=== PATIENT | female | born 1940 | race Caucasian/White ===

== ENCOUNTER 2018-10-20 22:48 | Inpatient (IN) | payer MEDICARE, OTHER ==
[~2018-10-20] VITALS: Ht 167.6 cm; Wt 85.1 kg
--- NOTE | ~2018-10-20 | CON ---
[address] [address] CONSULTATION Name: UGO GARZA ADAM Room: [address] IN M.R.#: [id number] Admission: 10/20/18 Attend Phys: Morgan Cardoso MD Discharge: 10/22/18 Date of : 38 Report #: [id number] THIS REPORT FOR: //name// CC: Morgan Haley DATE OF SERVICE: 10/22/2018 REFERRING PHYSICIAN: Morgan Cardoso MD. REASON FOR CONSULTATION: Gross hematuria. HISTORY OF PRESENT ILLNESS: This is a 78-year-old female who denies any prior urologic problems. She reports acute onset of gross hematuria two days ago, accompanied by some left lower quadrant pain. Denies passage of clots. Denies dysuria. Denies flank pain, fever or nausea. She denies slow stream, hesitancy or sensation of incomplete emptying. Denies passage of any stone fragments. Gross hematuria has resolved. She denies any history of renal disease or stones. PAST MEDICAL HISTORY: As above. She is chronically anticoagulated with Xarelto due to history of PE and DVT. She also has a history of hypertension, bronchitis. ALLERGIES: INCLUDE TYLENOL, CELEBREX, DECADRON, LEVSIN, IBUPROFEN, ULTRAM. MEDICATIONS: List is reviewed. PAST SURGICAL HISTORY: Includes hysterectomy, cholecystectomy, appendectomy, IVC filter placement, jaw surgery. FAMILY HISTORY: She does not know of any family history of renal disease. There is hypertension in the family. SOCIAL HISTORY: Denies use of tobacco, alcohol or recreational drugs. REVIEW OF SYSTEMS: As per the history of present illness. No chest pain, shortness of breath or palpitations. No dizziness. No cough. Left lower quadrant pain as above. Also, reports a history of diverticulosis and diverticulitis. PHYSICAL EXAMINATION: VITAL SIGNS: Temperature 37.2, pulse 76, respirations 20, blood pressure 123/46. GENERAL: This is a 78-year-old female in no acute distress. She is awake, [place] [address] CONSULTATION Name: VANESSA GARZATE [facility] Room: [address] IN [facility].#: [id number] Admission: 10/20/18 Attend Phys: Morgan Cardoso MD Discharge: 10/22/18 Date of : 38 Report #: [id number] HEENT: Normocephalic, atraumatic. Extraocular movements are intact. Oropharynx is clear. NECK: Supple. No JVD. LUNGS: Respiratory effort is normal. CARDIAC: Rhythm is regular. Radial pulses are palpable. Extremities are warm. No peripheral edema. ABDOMEN: Soft and nondistended. She has mild left lower quadrant tenderness with no guarding or rebound. Spine and costovertebral angles are nontender. Moves all extremities well. LABORATORY STUDIES: Include sodium 144, potassium 4.3, chloride 113, CO2 22, BUN 14, creatinine 1.0, glucose 97. Hemoglobin 12.4, white count 4.5, platelet count 217,000. Urinalysis revealed greater than 20 red cells, 0-5 white cells and many bacteria. Culture on that is pending. Noncontrast CT of the abdomen and pelvis was performed. See the report. Images were reviewed. Report indicates bilateral parapelvic cysts with no hydronephrosis, stones or apparent urinary lesions. IMPRESSION AND PLAN: 1. Gross hematuria, anticoagulation. Urine culture is pending. I ordered a urine cytology. 2. Discussed potential etiologies and possible further workup with the patient including contrast imaging and/or cystoscopy. We will defer contrast CT at this point, but this would be helpful to evaluate her upper tracts further. Contrast CT report from a few years ago was noted indicating bilateral parapelvic cysts (2014). However, those images are not available. We will follow along regarding her evaluation. This can be completed as an outpatient if she is otherwise stable for discharge. We will recheck creatinine tomorrow if she remains inpatient as it was 1.5 on admission and has improved to 1.0 today. By: [id number] Ward MD /aristeo
[~2018-10-20 22:48] MED LIST: ACETAMINOPHEN325 M1 PO; AMOXICILLIN 50500 MG; ASPIRIN325; ASPIRIN325 PO; CARBIDOPA-LEVO1 EAC2 PO; CELEXA20 MG PO; COUMADIN; COUMADIN 2 MG TA2 M1; COUMADIN 2.5MG2.5 M1 PO; COUMADIN 5 MG TA5 M1 PO; DARVOCET-N 1001 EAC1; DARVOCET-N 1001 EAC1 PO; FENTANYL PA50 MCG/HR TD; FOLIC ACID1 MG PO; HYDROXYZINE HCL25 M1 PO; KEFLEX500 MG PO; LOPRESSOR25 PO; LOVENOX SQ; LUNESTA2 MG PO; OMEPRAZOLE 20 M20 M1 PO; OSELB75 PO; OXYIR5 MG PO; ROBITUSSIN100 MG/5 M PO; SINEMET 25/1001 TA1 PO; TESSALON PERLE100 MG PO; VITAMIN D1000 UNI1 PO; XARELTO20 MG PO; ZITHROMAX500 MG PO; ZPAK PO
[2018-10-20 23:01] VITALS: BP 150/70
[2018-10-20] MEDS ORDERED: NEURONTIN 300300 M1 PO (23:08)
[2018-10-20] MEDS ORDERED: REQUIP 1 MG TABL1 M1 PO (23:08)
[2018-10-20] MEDS ORDERED: OXYCODONE HCL 55 MG PO (23:09)
[2018-10-20] MEDS ORDERED: ZANTAC 150MG T150 MG PO (23:09)
[2018-10-20] MEDS ORDERED: PROZAC20 MG PO (23:09)
[2018-10-20] MEDS ORDERED: FOLTX TABLET1 EAC1 PO (23:10)
[2018-10-20 23:13] LABS: URINE BLOOD 3+ (Negative); URINE COLOR RED; URINE GLUCOSE-RANDOM NEGATIVE (Negative); URINE KETONES NEGATIVE (Negative); URINE LEUKOCYTES-REFLEX NEGATIVE (Negative); URINE NITRITE-REFLEX NEGATIVE (Negative); URINE PROTEIN 1+ (Negative); URINE SPECIFIC GRAVITY 1.025 (1.005-1.030); URINE UROBILINOGEN 0.2 E.U./dl (0.2-1.0)
[2018-10-20 23:21] LABS: ICTOTEST (BILI CONFIRMATORY) Negative (Negative); URINE BILIRUBIN 1+ (Negative); URINE CLARITY CLOUDY
[2018-10-20 23:28] LABS: ABSOLUTE BASOPHILS 0.1 thou/uL (0.0-0.2); ABSOLUTE EOSINOPHILS 0.1 thou/uL (0.0-0.7); ABSOLUTE LYMPHOCYTES 1.6 thou/uL (0.8-5.3); ABSOLUTE MONOCYTES 0.7 thou/uL (0.0-1.2); ABSOLUTE NEUTROPHILS 3.7 thou/uL (1.6-8.1); BASOPHILS 1.2 %; EOSINOPHILS 1.7 %; HEMATOCRIT 38.6 % (37.0-47.0); HEMOGLOBIN 13.2 gm/dL (12.0-15.0); LYMPHOCYTES 26.4 %; MCH 32.2 pg (26.0-34.0); MCHC 34.2 g/dL (28.0-37.0); MONOCYTES 10.9 %; MPV 7.2 fl. (7.2-11.1); NUCLEATED RBCS 0 /100WBC; PLATELET COUNT* 254 thou/uL (150-400); POLYS 59.8 %; RBC 4.11 mil/uL (4.20-5.00); RDW-CV 13.4 % (10.5-14.5); WBC 6.2 thou/uL (4.0-11.0)
[2018-10-20 23:28] LABS: CASTS None Seen /LPF (None Seen); SQUAMOUS >10 Many /LPF (0-3)
[2018-10-20 23:29] LABS: URINE RBC >20 Many /HPF (0-2); URINE WBC-REFLEX 0-5 Rare /HPF (0-5)
[2018-10-20 23:30] LABS: BACTERIA-REFLEX >30 Many /HPF (None Seen); CRYSTALS None Seen /LPF (None Seen)
[2018-10-20 23:40] LABS: APTT 28.7 Seconds (25.0-31.3); PROTIME 10.7 Seconds (9.20-11.50)
[2018-10-20 23:50] LABS: ALBUMIN 3.6 g/dL (3.4-5.0); CALCIUM 8.8 mg/dL (8.5-10.1); CREATININE 1.5 mg/dL (0.6-1.3); POTASSIUM 3.8 mmol/L (3.5-5.1); TOTAL BILIRUBIN 0.2 mg/dL (<0.1-1.0); TOTAL PROTEIN 6.8 g/dL (6.4-8.2)
[2018-10-21 00:14] VITALS: BP 157/71
[2018-10-21 00:30] VITALS: BP 144/56
[2018-10-21 08:50] VITALS: BP 136/44
[2018-10-21 16:00] VITALS: BP 135/59
[2018-10-21 19:47] VITALS: BP 123/46
[2018-10-22 08:30] VITALS: BP 147/55
[2018-10-22 11:59] VITALS: BP 147/55
[2018-10-22 12:45] VITALS: BP 147/55
--- NOTE | 2018-10-23 17:10 | CON ---
[address] [address] CONSULTATION Name: JOSEYANIRAUGO Room: [address] IN M.R.#: [id number] Admission: 10/20/18 Attend Phys: Morgan Cardoso MD Discharge: 10/22/18 Date of : 38 Report #: [id number] THIS REPORT FOR: //name// CC: Morgan Cardoso Justin Adamarisidajohn DATE OF SERVICE: 10/21/2018 REASON FOR CONSULTATION: Gross hematuria. REFERRING PHYSICIAN: Morgan Cardoso MD CONSULTING PHYSICIAN: Charles Mendoza MD HISTORY OF PRESENT ILLNESS: This is a 78-year-old female who presented to the Emergency Room with gross hematuria that started yesterday. She also has had some dysuria and some abdominal pain in the left lower quadrant. She has never had any symptoms before. She denies any prior history such as kidney stones or urologic surgery. She denies any fevers, chills, nausea or vomiting. She does have a past medical history of pulmonary emboli with multiple DVTs. She has been on lifelong Xarelto and aspirin. Hematuria has been with small clots, but she has been voiding to completion and does not feel like she is retaining her urine. Urinalysis in the Emergency Room was negative for nitrites and leukocyte esterase, but greater than 20 red blood cells. PAST MEDICAL HISTORY: Acute bronchitis, history of PE with multiple DVTs, history of hypertension and influenza. ALLERGIES: TYLENOL, CELEBREX, DEXAMETHASONE, HYOSCYAMINE, IBUPROFEN, HYDROCODONE, DEPO-MEDROL AND TRAMADOL. SOCIAL HISTORY: Never smoker. Denies alcohol use. PAST SURGICAL HISTORY: She has had hysterectomy, cholecystectomy, diverticulitis, appendectomy, IVC filter placement and a cyst in general removed. MEDICATIONS: Requip, Neurontin, oxycodone, ranitidine, Prozac, Lunesta, Xarelto, aspirin, and folic acid. REVIEW OF SYSTEMS: See HPI. CONSTITUTIONAL: Denies any fevers or chills. No change in appetite. GASTROINTESTINAL: She has had some abdominal pain, but no nausea, vomiting or diarrhea. Otherwise, a 14-point review of systems was performed and negative. PHYSICAL EXAMINATION: [place] [address] CONSULTATION Name: UGO GARZA ADAM Room: [address]#: [id number] Admission: 10/20/18 Attend Phys: Morgan Cardoso MD Discharge: 10/22/18 Date of : 38 Report #: [id number] VITAL SIGNS: Temperature 36.8, heart rate 70, respiratory rate 16, blood pressure 136/44. GENERAL: She is alert and oriented x 3, no apparent distress. HEENT: Normocephalic, atraumatic. NECK: Supple. LUNGS: Clear. HEART: Regular rate and rhythm. ABDOMEN: Soft, nontender, nondistended. BACK: No CVA tenderness. EXTREMITIES: Good range of motion with no edema, no calf tenderness. LABORATORY DATA: White count 6.2, hemoglobin 13.2, platelets 254. Chemistry: Sodium is 145, potassium 3.8, BUN 20, creatinine 1.5. Urinalysis greater than 20 red blood cells, 0-5 white blood cells, greater than 10 squamous epithelial cells, bacteria greater than 30. ASSESSMENT AND PLAN: 1. Gross hematuria. 2. Differential includes urinary tract infection versus stone versus a malignancy versus other cause. 3. I agree with starting empiric antibiotics. 4. Await urine culture. 5. We will order a noncontrast CT of the abdomen and pelvis. 6. Depending on results, may need further workup with cystoscopy as an outpatient. 7. Renal insufficiency. Creatinine is 1.5, baseline 1.0 in August 2016, possibly due to obstruction. We will await results of CT scan. Thank you for this consult. We will follow with you. <ELECTRONICALLY SIGNED> By: Charles Mendoza MD 10/23/18 1710 1539 [id number] Mendoza MD /nt
--- NOTE | 2018-10-24 15:06 | PATH ---
[address] [address] PATHOLOGY RPT PROCEDURE Name: UGO GARZA ADAM Room: [address] IN .#: [id number] Admission: 10/20/18 Date of : 38 Discharge: 10/22/18 Report #: [id number] Path Case #: [id number] Note [facility] Accession Number: [id number] TESTS RESULT FLAG UNITS REF RANGE LAB Clinician Provided Cytology Information No. of containers..01 Other (Miscellaneous) Source: [A] 01 URINE DIAGNOSIS: [A] 02 URINE SUSPICIOUS FOR HIGH-GRADE UROTHELIAL CARCINOMA. SEE COMMENT. COMMENT: WILMER IN DR. MARIUSZ KNOWLES'S OFFICE NOTIFIED AT APPROXIMATELY 1450 ON 10/24/2018. REVIEWED WITH DR. CORINE CAMP WHO AGREES WITH THE DIAGNOSIS. Signed out by: 02 Dilshad Loredo MD, Pathologist NPI- [id number] Performed by: Zhane Mercado, Floor Tech ([facility]) Gross description: 01 70ML, CLEAR, COLORLESS /LCS FLAG LEGEND: L-Low Normal,H-High Normal,LL-Alert Low,HH-Alert High <-Panic Low,>-Panic High,A-Abnormal,AA-Critical Abnormal Performed at: [address] [place] [address] Carter Infante MD, [address] [place] [id number] Dilshad Loredo MD, Specimen Comment: A courtesy copy of this report has been sent to Specimen Comment: [phone], , . Specimen Comment: Report sent to ,DR PHILLIPS / DR LENTZ Performed at: [address], [place], [place] [id number] MD Carter Infante MD Phone: [phone]
== END 2018-10-22 12:40 | disposition home or self-care (01) | DRG 696 ==
LOC: M.ERS 22:48 → M.TBA-ER 23:39 → M.3W 23:39
PROVIDERS: Personal Emergency Response Attendant
DX: R31.0 Gross hematuria (principal); E44.1 Mild protein-calorie malnutrition; N17.0 Acute kidney failure with tubular necrosis; G25.81 Restless legs syndrome; T45.515A Adverse effect of anticoagulants, initial encounter; I10 Essential (primary) hypertension; Z68.30 Body mass index [BMI] 30.0-30.9, adult; Z90.49 Acquired absence of other specified parts of digestive tract; Z90.710 Acquired absence of both cervix and uterus; Z86.711 Personal history of pulmonary embolism; Z86.718 Personal history of other venous thrombosis and embolism; Z79.01 Long term (current) use of anticoagulants; Z79.82 Long term (current) use of aspirin; Z79.899 Other long term (current) drug therapy; Z88.8 Allergy status to other drugs, medicaments and biological substances; Z82.49 Family history of ischemic heart disease and other diseases of the circulatory system; Y92.89 Other specified places as the place of occurrence of the external cause

== ENCOUNTER → 2018-11-02 | Outpatient (CLI) | payer MEDICARE, OTHER ==
[~2018-11-02] MED LIST changes: +FOLTX TABLET1 EAC1 PO; +NEURONTIN 300300 M1 PO; +OXYCODONE HCL 55 MG PO; +PROZAC20 MG PO; +REQUIP 1 MG TABL1 M1 PO; +ZANTAC 150MG T150 MG PO
[2018-11-02 13:18] LABS: POTASSIUM 4.1 mmol/L (3.5-5.1)
== END ==
LOC: M.LAB 12:33
PROVIDERS: Urology
DX: R31.0 Gross hematuria (principal)

== ENCOUNTER → 2018-11-05 | Outpatient (CLI) | payer MEDICARE, OTHER | LOC: M.CT 09:30 | DX: N20.0 Calculus of kidney (principal); N28.1 Cyst of kidney, acquired; J98.4 Other disorders of lung; K57.30 Diverticulosis of large intestine without perforation or abscess without bleeding; M25.78 Osteophyte, vertebrae; Z90.49 Acquired absence of other specified parts of digestive tract; Z90.710 Acquired absence of both cervix and uterus ==

== ENCOUNTER 2019-01-25 16:10 | Inpatient (IN) | payer MEDICARE, OTHER ==
[~2019-01-25] VITALS: Ht 167.6 cm; Wt 83.5 kg
[2019-01-25 16:15] VITALS: BP 165/67
[2019-01-25 16:37] LABS: ABSOLUTE EOSINOPHILS 0.1 thou/uL (0.0-0.7); ABSOLUTE LYMPHOCYTES 1.4 thou/uL (0.8-5.3); ABSOLUTE MONOCYTES 0.4 thou/uL (0.0-1.2); ABSOLUTE NEUTROPHILS 2.6 thou/uL (1.6-8.1); BASOPHILS 0.7 %; EOSINOPHILS 2.5 %; HEMATOCRIT 39.3 % (37.0-47.0); HEMOGLOBIN 13.2 gm/dL (12.0-15.0); LYMPHOCYTES 29.7 %; MCH 31.7 pg (26.0-34.0); MCHC 33.6 g/dL (28.0-37.0); MCV 94.3 fL (80.0-100.0); MONOCYTES 9.1 %; MPV 7.1 fl. (7.2-11.1); NUCLEATED RBCS 0 /100WBC; PLATELET COUNT* 239 thou/uL (150-400); RBC 4.17 mil/uL (4.20-5.00); RDW-CV 13.2 % (10.5-14.5); WBC 4.6 thou/uL (4.0-11.0)
[2019-01-25 16:45] LABS: ANION GAP 11 mmol/L (7-16); BUN 17 mg/dL (7-18); CALCIUM 8.7 mg/dL (8.5-10.1); CHLORIDE 106 mmol/L (98-107); CO2 24 mmol/L (21-32); CREATININE 1.1 mg/dL (0.6-1.3); GLUCOSE 126 mg/dL (70-99); POTASSIUM 3.8 mmol/L (3.5-5.1); SODIUM 141 mmol/L (136-145)
[2019-01-25 16:54] LABS: ALBUMIN 3.7 g/dL (3.4-5.0); ALKALINE PHOSPHATASE 150 U/L (46-116); SGOT 15 U/L (15-37); SGPT 24 U/L (30-65); TOTAL BILIRUBIN 0.2 mg/dL (<0.1-1.0); TROPONIN-I LEVEL <0.06 ng/mL (<0.06)
[2019-01-25 17:58] LABS: APTT 29.8 Seconds (25.0-31.3); INR 1.1; PROTIME 11.2 Seconds (9.20-11.50)
[2019-01-25 19:50] VITALS: BP 138/60
[2019-01-25 20:15] VITALS: BP 166/53
--- NOTE | 2019-01-25 20:15 | NUR ---
PT ADMITTED FROM ER, AMBULATED FROM CART TO BED WITH STEADY GAIT. C/O RT CHEST PRESSURE 3/10 AND UPPER BACK PAIN 5/10. TELEMETRY APPLIED SHOWING SR. PT NOTED TO HAVE LT SIDED FACIAL DROOP. STATES RT MOUTH FEELS SWOLLEN AND NUMB. STATES AWARE IN ER AND THOUGHT IT WAS FROM THE NTG SL. BED SIDE SWALLOW COMPLETED, NO DIFFICULTY WITH SWALLOWING, COUGHING OR CHOKING. SEE ADMISSION HX AND ASSESSMENT. FAMILY AT BEDSIDE. WILL CONT TO MONITOR AND ASSIST NEEDED.
[2019-01-25 23:28] LABS: HEMATOCRIT 36.2 % (37.0-47.0); HEMOGLOBIN 12.4 gm/dL (12.0-15.0); MCH 32.2 pg (26.0-34.0); MCHC 34.2 g/dL (28.0-37.0); MCV 94.3 fL (80.0-100.0); MPV 7.5 fl. (7.2-11.1); RBC 3.84 mil/uL (4.20-5.00); WBC 4.3 thou/uL (4.0-11.0)
[2019-01-25 23:37] LABS: CALCIUM 8.6 mg/dL (8.5-10.1); CREATININE 1.1 mg/dL (0.6-1.3); POTASSIUM 3.8 mmol/L (3.5-5.1)
--- NOTE | 2019-01-25 23:41 | NUR ---
DR ANGELO HERE AND MADE AWARE OF FACIAL DROOP. ORDERS RECEIVED. [facility] 1 DUE TO LT FACIAL DROOP. CT OF HEAD COMPLETED. AMBULATED TO AND FROM BR WITH STEADY GAIT. WILL CONT TO MONITOR.
[2019-01-25 23:47] LABS: ALBUMIN 3.1 g/dL (3.4-5.0); TOTAL BILIRUBIN 0.2 mg/dL (<0.1-1.0)
[2019-01-26] VITALS: BP 137/50
[2019-01-26 04:00] VITALS: BP 126/47
[2019-01-26 05:27] LABS: ALKALINE PHOSPHATASE 116 U/L (46-116); ANION GAP 8 mmol/L (7-16); BUN 15 mg/dL (7-18); CALCIUM 8.2 mg/dL (8.5-10.1); CHLORIDE 110 mmol/L (98-107); CHOLESTEROL 178 mg/dL (<200); CO2 25 mmol/L (21-32); CREATININE 1.1 mg/dL (0.6-1.3); GLUCOSE 110 mg/dL (70-99); HDL CHOLESTEROL 59 mg/dL (>40); LDL CHOLESTEROL 105 mg/dL (<100); POTASSIUM 4.1 mmol/L (3.5-5.1); SGOT 12 U/L (15-37); SGPT 19 U/L (30-65); SODIUM 143 mmol/L (136-145); TOTAL BILIRUBIN 0.2 mg/dL (<0.1-1.0); TOTAL PROTEIN 5.9 g/dL (6.4-8.2); TRIGLYCERIDE 73 mg/dL (<150); VLDL 15 mg/dL (<40)
[2019-01-26 05:30] LABS: SERUM ASSESSMENT Clear
--- NOTE | 2019-01-26 06:26 | NUR ---
SLEPT WELL TONIGHT. GAIT STEADY TO AND FROM BR INDEPENDENTLY. NO CHANGE IN ASSESSMENT. NPO ORDERED. TELEMETRY SHOWING SR. HS GOALS OF REST AND SAFETY ACHIEVED. HOURLY ROUNDING OBSERVED.
[2019-01-26 08:00] VITALS: BP 143/57
[2019-01-26 08:28] LABS: URINE BILIRUBIN NEGATIVE (Negative); URINE BLOOD NEGATIVE (Negative); URINE CLARITY CLEAR; URINE COLOR YELLOW; URINE GLUCOSE-RANDOM NEGATIVE (Negative); URINE KETONES NEGATIVE (Negative); URINE LEUKOCYTES NEGATIVE (Negative); URINE NITRITE NEGATIVE (Negative); URINE PROTEIN NEGATIVE (Negative); URINE UROBILINOGEN 0.2 E.U./dl (0.2-1.0)
[2019-01-26 12:00] VITALS: BP 131/53
--- NOTE | 2019-01-26 12:50 | EKG ---
[place] [address] ELECTROCARDIOGRAM REPORT Name: UGO GARZA Room: [address] ADM IN .R.#: [id number] Admission: 01/25/19 Attend Phys: Jacquelin Lundberg Discharge: Date of : 38 Report #: [id number] THIS REPORT FOR: //name// [facility] ED Test Date: 2019-01-25 Test Time: 16:18:15 Pat Name: UGO GARZA Department: Room: [facility] Gender: F Intelligence Support Officer: JOELLEN : 1940 Requested By: Gretta Gandara Order Number: [id number] MD: Alejandro Whitehead Measurements Intervals [place] Rate: 70 P: 72 IN: 140 QRS: -21 QRSD: 145 T: 104 QT: 466 QTc: 503 Interpretive Statements Sinus rhythm Left bundle branch block Compared to ECG 08/24/2016 13:57:07 pac's no longer present Electronically Signed On 01-26-2019 12:49:47 CDT by Aeljandro Whitehead [email or web address] <ELECTRONICALLY SIGNED> By: Alejandro Whitehead MD, [facility] 01/26/19 1249 1618 1618 Alejandro Whitehead MD, [facility] /EPI
[2019-01-26 14:33] VITALS: BP 131/53
--- NOTE | 2019-01-26 16:32 | NUR ---
ASSUSSMED CARE OF PT AT APPROX 0730. REASSESSMENT COMPLETED CHARTED. MEDICATIONS GIVEN CHARTED. PT NEEDS MET. PT EDUCATION GIVEN. PT VERBALIZED UNDERSTANDING. PT OFF UNIT THIS MORNING FOR TESTS. PT WAS BACK ON UNIT AFTER TEST WAS COMPLETED. PT WAS CLEARED BY THE PHYSICANS SEEING HER TO DISCHARGE TODAY. DISCHARGE TEACHING GIVEN BY [address]. PT WAS ASSISSTED BY STAFF TO VEHICLE.
--- NOTE | 2019-01-26 17:00 | NUR ---
I HAVE REVIEWED AND AGREE WITH THE ASSESMENT AND NOTE OF AWAIS Warner RN ON 01/26/19. PT AND GIVEN DISCHARGE EDUCATION. DISCUSSED MEDS TO RESUME AND FOLLOW UP APPTS TO MAKE. BOTH VERBALIZED UNDERSTANDING.
[2019-01-27 02:05] LABS: GLYCOHEMOGLOBIN (HGB A1C) 5.8 % (4.8-5.6)
--- NOTE | 2019-01-27 10:55 | CON ---
[address] [address] CONSULTATION Name: UGO GARZA Room: [address] IN M.R.#: [id number] Admission: 01/25/19 Attend Phys: Jacqulein Lundberg Discharge: 01/26/19 Date of : 39 Report #: [id number] THIS REPORT FOR: //name// CC: Justin Diego DATE OF SERVICE: 01/26/2019 CARDIOLOGY CONSULTATION HISTORY OF PRESENT ILLNESS: The patient is a 78-year-old white female who I was asked to see in the hospital today after she complained of chest pressure. The patient has no previous history of heart disease. She previously was evaluated by my partner, Dr. Brandt Webb. Previous nuclear stress test in 2012 showed no evidence of ischemia with ejection fraction of 54%. She underwent a repeat nuclear stress test in 2014 using adenosine. This showed an ejection fraction of 67%. There was again no evidence of ischemia on myocardial perfusion imaging. Echocardiogram in 2015 showed normal ejection fraction, no significant valvular disease. The patient is not very active at this time. Recently, she has noted some tightness in her chest. She has had a cough. The tightness is not related to activity or meals. There is no radiation of the discomfort. She has had no bleeding. Denied any trauma to her chest or rash. She does get short of breath when she exerts herself. She notes occasional flutter, however, has had no syncope. She went to see her primary care physician yesterday and was sent to the hospital and admitted. PAST MEDICAL HISTORY: She has had a hysterectomy, cholecystectomy. She has had a history of DVT and PE. She has had an IVC filter placed in the past. She is chronically on Xarelto. She also takes Neurontin, aspirin. FAMILY HISTORY: Negative for heart disease. SOCIAL HISTORY: She is . She and her live in [place]. No smoking or alcohol abuse. REVIEW OF SYSTEMS: She has had no history of stroke. She has seasonal allergies. She wears glasses. No history of liver disease, kidney disease, cancer or skin problems, psychiatric illness. PHYSICAL EXAMINATION: GENERAL: Elderly female lying in bed. She appeared in no distress. VITAL SIGNS: She had a blood pressure of 140/70, pulse 66. She was afebrile. HEENT: She was anicteric. Conjunctivae are pink. Mucous membranes moist. NECK: Veins do not appear distended. No carotid bruits. Neck supple. CHEST: [place] [address] CONSULTATION Name: VANESSA GARZACRISS MEDINA Room: [address] IN M.R.#: [id number] Admission: 01/25/19 Attend Phys: Jacquelin Lundberg Discharge: 01/26/19 Date of : 38 Report #: [id number] CARDIOVASCULAR: Regular rate and rhythm without murmur. ABDOMEN: Soft. EXTREMITIES: Had no edema. Dorsalis pedis pulse 1+ bilaterally. SKIN: Cool and dry. NEUROLOGIC: Nonfocal. LYMPH: No adenopathy. MUSCULOSKELETAL: No joint effusion. RADIOLOGY DATA: Her ECG showed a sinus rhythm with a left bundle-branch block, and compared to previous ECG, the left bundle-branch block is old. X-rays last night, she had a portable chest x-ray that showed normal heart size, clear lung esquivel. CT scan of the chest performed using a PE protocol showed no evidence of pulmonary embolus. There was some atelectasis. She actually had a CT scan of the head performed without contrast showed no acute abnormality. LABORATORY DATA: sodium 143, creatinine 1.1, glucose 110. Liver function studies were normal. Albumin is 3.0. Troponins all 0.06. Her cholesterol was 178, triglycerides 73, HDL 59, LDL 105. Her white blood cell count 4.3, hemoglobin 12.4. IMPRESSION AND RECOMMENDATIONS: 1. Chest pressure. Atypical for angina. No evidence of acute coronary syndrome. Suspect noncardiac. Two previous nuclear stress tests in the past. I would recommend no further cardiac workup at this time. 2. Exertional dyspnea. Reason unclear. Suspect exercise intolerance. 3. History of deep venous thrombosis and pulmonary embolism. The patient has been chronically anticoagulated. 4. History of seasonal allergies. 5. Left bundle-branch block. <ELECTRONICALLY SIGNED> By: Alejandro Whitehead MD, [facility] 01/27/19 1055 0804 [id number] Whitehead MD, FAC /nt
--- NOTE | 2019-01-28 12:24 | EKG ---
[place] [address] ELECTROCARDIOGRAM REPORT Name: JOSEYANIRAUGO Room: [address] DIS IN M.R.#: [id number] Admission: 01/25/19 Attend Phys: Jacquelin Lundberg Discharge: 01/26/19 Date of : 38 Report #: [id number] THIS REPORT FOR: //name// [facility] Test Date: 2019-01-26 Test Time: 00:13:44 Pat Name: UGO GARZA Department: Room: [address] Gender: F Superintendent Construction: BASSAM : 1940 Requested By: Cedric Hyde Order Number: [id number] Mercedes MD: Alejandro Whitehead Measurements Intervals [place] Rate: 67 P: 72 CO: 148 QRS: 2 QRSD: 144 T: 82 QT: 492 QTc: 520 Interpretive Statements Sinus rhythm Left bundle branch block Compared to ECG 01/25/2019 16:18:15 No significant changes Electronically Signed On 01-28-2019 12:24:02 CDT by Alejandro Whitehead [email or web address] <ELECTRONICALLY SIGNED> By: Alejandro Whitehead MD, [facility] 01/28/19 1224 0013 0013 Alejandro Whitehead MD, [facility] /EPI
== END 2019-01-26 16:30 | disposition home or self-care (01) | DRG 206 ==
LOC: M.ERS 16:10 → M.2W 18:19 → M.TBA-ER 18:19 → M.2W 20:47
PROVIDERS: Personal Emergency Response Attendant; ADMIT Internal Medicine
DX: M94.0 Chondrocostal junction syndrome [Tietze] (principal); I44.7 Left bundle-branch block, unspecified; I10 Essential (primary) hypertension; G25.81 Restless legs syndrome; R29.810 Facial weakness; Z86.718 Personal history of other venous thrombosis and embolism; Z86.711 Personal history of pulmonary embolism; Z95.828 Presence of other vascular implants and grafts; Z88.6 Allergy status to analgesic agent; Z90.710 Acquired absence of both cervix and uterus; Z90.49 Acquired absence of other specified parts of digestive tract; Z88.8 Allergy status to other drugs, medicaments and biological substances; Z82.49 Family history of ischemic heart disease and other diseases of the circulatory system

== ENCOUNTER → 2019-01-28 | Outpatient (CLI) | payer MEDICARE, OTHER ==
--- NOTE | 2019-01-28 15:44 | 2DMMODE ---
[place] [address] 2 D/M-MODE ECHOCARDIOGRAM Name: UGO GARZA Room: [facility]#: [id number] Admission: 01/28/19 Attend Phys: Jacquelin Dukes Discharge: Date of : 38 Date of Service: 01/28/19 1543 Report #: [id number] THIS REPORT FOR: //name// APPROVED REPORT Study performed: 01/28/2019 12:45:33 EXAM: Comprehensive 2D, Doppler, and color-flow Echocardiogram Patient Location: Out-Patient BSA: 1.91 HR: 80 bpm BP: 130/60 mmHg Other Information Study Quality: Good Indications Dyspnea 2D Dimensions IVSd: 10.89 (7-11mm) LVOT Diam: 20.04 (18-24mm) LVDd: 46.70 mm PWd: 10.30 (7-11mm) Ascending Ao: 28.78 (22-36mm) LVDs: 30.56 (25-40mm) Aortic Root: 28.65 mm Volumes Left Atrial Volume (Systole) LA ESV Index: 15.20 mL/m2 Aortic Valve AoV Peak Jaime.: 1.30 m/s AO Peak Gr.: 6.71 mmHg LVOT Max P.53 mmHg AO Mean Gr.: 3.72 mmHg LVOT Mean P.31 mmHg LVOT Max V: 0.80 m/s AO V2 VTI: 26.12 cm LVOT Mean V: 0.53 m/s ROSA (VTI): 2.08 cm2 LVOT V1 VTI: 17.22 cm Mitral Valve E/A Ratio: 0.59 MV Decel. Time: 273.50 ms MV E Max Jaime.: 0.48 m/s MV PHT: 79.31 ms MVA (PHT): 2.77 cm2 [place] [address] 2 D/M-MODE ECHOCARDIOGRAM Name: JOSEYANIRAUGO ADAM Room: [facility]#: [id number] Admission: 01/28/19 Attend Phys: Jacquelin Dukes Discharge: Date of : 38 Date of Service: 01/28/19 1543 Report #: [id number] TDI E/Lateral E': 6.00 E/Medial E': 3.43 Medial E' Jaime.: 0.14 m/s Lateral E' Jaime.: 0.08 m/s Pulmonary Valve PV Peak Jaime.: 1.08 m/s PV Peak Gr.: 4.68 mmHg Tricuspid Valve RAP Estimate: 5.00 mmHg TR Peak Gr.: 26.77 mmHg RVSP: 31.77 mmHg PA Pressure: 31.77 mmHg Left Ventricle The left ventricle is normal size. There is normal LV segmental wall motion. There is normal left ventricular wall thickness. Left ventricular systolic function is normal. The left ventricular ejection fraction is within the normal range. LVEF is 55-60%. Grade I - abnormal relaxation pattern. Right Ventricle The right ventricle is normal size. The right ventricular systolic function is normal. Atria The left atrium size is normal. The right atrium size is normal. Aortic Valve The Aortic valve is sclerotic. No aortic regurgitation is present. There is no aortic valvular stenosis. Mitral Valve The mitral valve is normal in structure. Mild mitral regurgitation. No evidence of mitral valve stenosis. Tricuspid Valve The tricuspid valve is normal in structure. Mild tricuspid regurgitation. estimated pa pressure 35 mm Hg Pulmonic Valve The pulmonary valve is normal in structure. There is no pulmonic valvular regurgitation[place] [address] 2 D/M-MODE ECHOCARDIOGRAM Name: UGO GARZA [facility] Room: [facility]#: [id number] Admission: 01/28/19 Attend Phys: Jacquelin Dukes Discharge: Date of : 38 Date of Service: 01/28/19 1543 Report #: [id number] The aortic root is normal in size. IVC is normal in size and collapses >50% with inspiration. Pericardium There is no pericardial effusion. <Conclusion> LVEF is 55-60%. The Aortic valve is sclerotic. Mild mitral regurgitation. Mild tricuspid regurgitation. estimated pa pressure 35 mm Hg <ELECTRONICALLY SIGNED> By: Alejandro Whitehead MD, [facility] 01/28/19 1543 1543 1543 Alejandro Whitehead MD, FAC /INF
== END ==
LOC: M.CRD 08:31 → M.MRI 14:15
DX: I08.3 Combined rheumatic disorders of mitral, aortic and tricuspid valves (principal); R29.810 Facial weakness; Z88.8 Allergy status to other drugs, medicaments and biological substances

== ENCOUNTER → 2019-02-05 | Outpatient (CLI) | payer MEDICARE, OTHER ==
--- NOTE | 2019-02-07 08:29 | PF ---
[address] [address] PULMONARY FUNCTION REPORT Name: UGO GARZA ADAM Room: [facility]#: [id number] Admission: 02/05/19 Attend Phys: Isidro Bernal DO Discharge: Date of : 38 Report #: [id number] THIS REPORT FOR: //name// CC: Isidro Barry DO DATE OF SERVICE: 02/06/2019 ATTENDING PHYSICIAN: Justin Haley DO. A 78-year-old female with cough and shortness of air. Full PFTs were performed. Spirometry demonstrates moderate obstructive defect. No improvement after single dose of inhaled bronchodilator. Best effort shows an FEV1 of 2.0 liters and FVC of 3.0 liters, ratio 66%. FEV1 was 126% of predicted. No significant small airways disease was noted. Lung volumes performed via plethysmography showed moderate hyperinflation with TLC being 130% of predicted. Vital capacity 140% of predicted. RV to TLC was 123% of predicted, significant with some mild hyperinflation. Diffusion when corrected for alveolar volume was within normal limits. IMPRESSION: Abnormalities suggest moderate obstructive airways disease with hyperinflation, no bronchodilator response was noted and normal DLCO. <ELECTRONICALLY SIGNED> By: Nicolas Valencia MD 02/07/19 0829 1044 1227AMD dirk Shea
== END ==
LOC: M.PUL 09:30
DX: R06.02 Shortness of breath (principal); R05 Cough

== ENCOUNTER 2020-09-16 18:25 | Emergency (ER) | payer MEDICARE, OTHER ==
[~2020-09-16] VITALS: Ht 167.6 cm; Wt 79.4 kg
[2020-09-16 18:59] LABS: ABSOLUTE EOSINOPHILS 0.1 thou/uL (0.0-0.7); ABSOLUTE LYMPHOCYTES 0.9 thou/uL (0.8-5.3); ABSOLUTE MONOCYTES 0.7 thou/uL (0.0-1.2); ABSOLUTE NEUTROPHILS 4.3 thou/uL (1.6-8.1); BASOPHILS 0.7 %; EOSINOPHILS 1.5 %; HEMATOCRIT 41.1 % (37.0-47.0); HEMOGLOBIN 13.7 gm/dL (12.0-15.0); LYMPHOCYTES 15.6 %; MCH 30.9 pg (26.0-34.0); MCHC 33.3 g/dL (28.0-37.0); MCV 92.7 fL (80.0-100.0); MONOCYTES 10.8 %; MPV 6.9 fl. (7.2-11.1); NUCLEATED RBCS 0 /100WBC; PLATELET COUNT* 235 thou/uL (150-400); POLYS 71.4 %; RBC 4.43 mil/uL (4.20-5.00); RDW-CV 12.9 % (10.5-14.5)
[2020-09-16 19:08] LABS: CALCIUM 8.7 mg/dL (8.5-10.1); CREATININE 1.1 mg/dL (0.6-1.3); POTASSIUM 3.8 mmol/L (3.5-5.1)
[2020-09-16 19:12] LABS: ALBUMIN 3.7 g/dL (3.4-5.0); MAGNESIUM 2.1 mg/dL (1.8-2.4); TOTAL BILIRUBIN 0.7 mg/dL (<0.1-1.0); TOTAL PROTEIN 7.3 g/dL (6.4-8.2)
[2020-09-16 20:05] LABS: URINE BILIRUBIN NEGATIVE (Negative); URINE BLOOD 1+ (Negative); URINE CLARITY CLEAR; URINE COLOR YELLOW; URINE GLUCOSE-RANDOM NEGATIVE (Negative); URINE KETONES TRACE (Negative); URINE LEUKOCYTES-REFLEX NEGATIVE (Negative); URINE NITRITE-REFLEX NEGATIVE (Negative); URINE PROTEIN NEGATIVE (Negative); URINE UROBILINOGEN 0.2 E.U./dl (0.2-1.0)
[2020-09-16 20:13] LABS: CASTS None Seen /LPF (None Seen); CRYSTALS None Seen /LPF (None Seen); MUCUS None Seen strn/LPF (None Seen); SQUAMOUS >10 Many /LPF (0-3)
[2020-09-16 20:14] LABS: BACTERIA-REFLEX 1-9 Few /HPF (None Seen); URINE RBC 0-2 Rare /HPF (0-2); URINE WBC-REFLEX 0-5 Rare /HPF (0-5)
[2020-09-16] MEDS ORDERED: ONDANSETRON HCL4 M2 PO (20:32)
[2020-09-16 20:54] VITALS: BP 148/60
[2020-09-17] MEDS ORDERED: SINEMET 25-1001 EAC1 PO (20:28)
[2020-09-17] MEDS ORDERED: OMEPRAZOLE40 MG PO (20:29)
== END 2020-09-16 20:54 | disposition home or self-care (01) ==
LOC: M.ERS 18:25
PROVIDERS: Physician Assistant
DX: T88.1XXA Other complications following immunization, not elsewhere classified, initial encounter (principal); R53.83 Other fatigue; R51.9 Headache, unspecified; G25.81 Restless legs syndrome; Z88.1 Allergy status to other antibiotic agents; Z88.6 Allergy status to analgesic agent; Z88.5 Allergy status to narcotic agent; Z88.8 Allergy status to other drugs, medicaments and biological substances; Z90.710 Acquired absence of both cervix and uterus; Z90.49 Acquired absence of other specified parts of digestive tract; Z86.718 Personal history of other venous thrombosis and embolism; Z86.711 Personal history of pulmonary embolism; Y84.8 Other medical procedures as the cause of abnormal reaction of the patient, or of later complication, without mention of misadventure at the time of the procedure; Y92.89 Other specified places as the place of occurrence of the external cause

== ENCOUNTER 2020-09-17 20:19 | Emergency (ER) | payer MEDICARE, OTHER ==
[~2020-09-17] VITALS: Ht 167.6 cm; Wt 79.4 kg
[~2020-09-17 20:19] MED LIST changes: +ONDANSETRON HCL4 M2 PO
[2020-09-17] MEDS ORDERED: SINEMET 25-1001 EAC1 PO (20:28)
[2020-09-17] MEDS ORDERED: OMEPRAZOLE40 MG PO (20:29)
[2020-09-17 21:55] VITALS: BP 134/61
== END 2020-09-17 21:55 | disposition home or self-care (01) ==
LOC: M.ERS 20:19
DX: L50.0 Allergic urticaria (principal); R06.02 Shortness of breath; Z90.711 Acquired absence of uterus with remaining cervical stump; Z90.49 Acquired absence of other specified parts of digestive tract; Z86.718 Personal history of other venous thrombosis and embolism; Z79.899 Other long term (current) drug therapy; Z79.82 Long term (current) use of aspirin; Z88.8 Allergy status to other drugs, medicaments and biological substances; Z88.6 Allergy status to analgesic agent

== ENCOUNTER → 2020-11-18 | Outpatient (CLI) | payer MEDICARE, OTHER ==
[~2020-11-18] MED LIST changes: +OMEPRAZOLE40 MG PO; +SINEMET 25-1001 EAC1 PO
== END ==
LOC: M.MRI 09:40
DX: M47.26 Other spondylosis with radiculopathy, lumbar region (principal)

== ENCOUNTER → 2021-07-19 | Outpatient (CLI) | payer MEDICARE, OTHER ==
[2021-07-19 16:37] LABS: ABSOLUTE BASOPHILS 0.1 thou/uL (0.0-0.2); ABSOLUTE EOSINOPHILS 0.1 thou/uL (0.0-0.7); ABSOLUTE MONOCYTES 0.6 thou/uL (0.0-1.2); ABSOLUTE NEUTROPHILS 3.2 thou/uL (1.6-8.1); BASOPHILS 1.1 %; EOSINOPHILS 1.8 %; HEMATOCRIT 39.2 % (37.0-47.0); MCH 31.1 pg (26.0-34.0); MCHC 33.2 g/dL (28.0-37.0); MCV 93.4 fL (80.0-100.0); MONOCYTES 9.5 %; MPV 6.9 fl. (7.2-11.1); NUCLEATED RBCS 0 /100WBC; PLATELET COUNT* 286 thou/uL (150-400); POLYS 53.6 %; RBC 4.19 mil/uL (4.20-5.00); RDW-CV 13.2 % (10.5-14.5)
[2021-07-19 16:54] LABS: ALBUMIN 3.7 g/dL (3.4-5.0); CALCIUM 8.5 mg/dL (8.5-10.1); POTASSIUM 4.3 mmol/L (3.5-5.1); TOTAL BILIRUBIN 0.2 mg/dL (<0.1-1.0); TOTAL PROTEIN 6.8 g/dL (6.4-8.2)
== END ==
LOC: M.LAB 15:45
PROVIDERS: ATTEND Nurse Practitioner Family
DX: R07.89 Other chest pain (principal); R06.02 Shortness of breath; R05.9 Cough, unspecified; Z86.16 Personal history of COVID-19